=== PATIENT | female | born 1975 | race Caucasian/White ===

== ENCOUNTER 2016-12-15 10:59 | Emergency (ER) | payer MEDICAID ==
[2016-12-15 11:55] LABS: BASOPHILS 0.6 % (0.0-2.0); EOSINOPHILS 1.2 % (0-7); HEMATOCRIT 40.4 % (36.0-48.0); HEMOGLOBIN 13.1 g/dL (12-16); MCH 30.2 pg (26.0-34.0); MCHC 32.4 g/dL (31.0-37.0); MCV 93.1 fL (80.0-100.0); MEAN PLATELET VOLUME 11.4 fL (7.4-10.4); MONOCYTES 9.3 % (2-11); NEUTROPHILS 54.9 % (40-80); PLATELET COUNT 93 10x3/uL (130-400); RBC 4.34 10x6/uL (4.00-5.40); RDW 16.8 % (11.5-14.5); WBC 3.2 10x3/uL (4.8-10.8)
[2016-12-15 12:14] LABS: ALBUMIN 3.7 g/dL (3.4-5.0); ALKALINE PHOSPHATASE 75 U/L (46-116); ALT (SGPT) 37 U/L (10-68); BILIRUBIN - TOTAL 0.61 mg/dL (0.2-1.3); CALC OSMOLALITY 277 mosm/kg (275-300); CALCIUM 9.1 mg/dL (8.5-10.1); CARBON DIOXIDE 25.2 mmol/L (21.0-32.0); CHLORIDE - SERUM 103 mmol/L (98-107); CREATININE - SERUM 0.8 mg/dL (0.6-1.3); GLUCOSE 111 mg/dL (74-106); POTASSIUM - SERUM 3.3 mmol/L (3.5-5.1); PROTEIN - SERUM 7.4 g/dL (6.4-8.2); SODIUM 139 mmol/L (136-145); UREA NITROGEN 11 mg/dL (7-18); eGFR NON AFRICAN AMERICAN 85 mL/min (90-120)
[2016-12-15 12:15] LABS: PLATELET ESTIMATE DECREASED
== END 2016-12-15 13:14 | disposition home or self-care (01) ==
LOC: D.ER 10:59
PROVIDERS: Emergency Medicine
DX: I10 Essential (primary) hypertension (principal); F17.200 Nicotine dependence, unspecified, uncomplicated

== ENCOUNTER 2018-10-11 11:03 | Emergency (ER) | payer MEDICAID ==
[~2018-10-11] VITALS: Ht 175.3 cm; Wt 79.5 kg
[2018-10-11 11:31] VITALS: Ht 175.3 cm; Wt 79.5 kg
[2018-10-11] MEDS ORDERED: HYDROCHLOROTHIA25 MG PO (12:12)
[2018-10-11] MEDS ORDERED: NORVASC10 MG PO (12:12)
[2018-10-11 12:47] VITALS: BP 488/119
== END 2018-10-11 12:47 | disposition home or self-care (01) ==
LOC: D.ER 11:03
DX: I10 Essential (primary) hypertension (principal); R51 Headache; K21.9 Gastro-esophageal reflux disease without esophagitis; F17.200 Nicotine dependence, unspecified, uncomplicated

== ENCOUNTER 2019-04-02 18:13 | Emergency (ER) | payer SELFPAY ==
[~2019-04-02] VITALS: Ht 175.3 cm; Wt 70.5 kg
[~2019-04-02 18:13] MED LIST: HYDROCHLOROTHIA25 MG PO; NORVASC10 MG PO
[2019-04-02 18:27] VITALS: Ht 175.3 cm; Wt 70.5 kg
[2019-04-02 20:03] LABS: BASOPHILS 0.1 % (0-2); EOSINOPHILS 1.8 % (0-7); HEMATOCRIT 40.5 % (36.0-48.0); HEMOGLOBIN 13.2 g/dL (12-16); IMMATURE GRANULOCYTES 0.3 % (0-5); LYMPHOCYTES 35.5 % (15-50); MCH 28.4 pg (26.0-34.0); MCHC 32.6 g/dL (31.0-37.0); MCV 87.3 fL (80.0-100.0); MEAN PLATELET VOLUME 10.4 fL (7.4-10.4); MONOCYTES 5.8 % (2-11); NEUTROPHILS 56.5 % (40-80); RBC 4.64 10x6/uL (4.00-5.40); RDW 14.6 % (11.5-14.5); WBC 6.8 10x3/uL (4.8-10.8)
[2019-04-02 20:04] LABS: PLATELET COUNT 218 10x3/uL (130-400)
[2019-04-02 20:09] LABS: ALBUMIN 3.7 g/dL (3.4-5.0); ANION GAP 12.1 mmol/L (8-16); BILIRUBIN - TOTAL 0.15 mg/dL (0.2-1.3); CALCIUM 9.3 mg/dL (8.5-10.1); CARBON DIOXIDE 30.2 mmol/L (21.0-32.0); CREATININE - SERUM 0.9 mg/dL (0.6-1.3); MAGNESIUM - SERUM 1.9 mg/dL (1.8-2.4); POTASSIUM - SERUM 3.3 mmol/L (3.5-5.1); PROTEIN - SERUM 7.4 g/dL (6.4-8.2)
[2019-04-02 20:50] LABS: APPEARANCE CLEAR (CLEAR); BILIRUBIN NEGATIVE (NEGATIVE); COLOR STRAW (YELLOW); GLUCOSE NEGATIVE (NEGATIVE); KETONE NEGATIVE (NEGATIVE); NITRITE NEGATIVE (NEGATIVE); PROTEIN NEGATIVE (NEGATIVE); SPECIFIC GRAVITY 1.005 (1.005-1.020); UROBILINOGEN NORMAL (NORMAL)
[2019-04-02 21:47] LABS: HCG URINE NEGATIVE (NEGATIVE)
[2019-04-02 21:49] LABS: UDS - AMPHET NEGATIVE QUAL (NEGATIVE); UDS - BARB NEGATIVE QUAL (NEGATIVE); UDS - BENZO NEGATIVE QUAL (NEGATIVE); UDS - COCAINE NEGATIVE QUAL (NEGATIVE); UDS - OPIATE NEGATIVE QUAL (NEGATIVE); UDS - PCP NEGATIVE QUAL (NEGATIVE); UDS - THC NEGATIVE QUAL (NEGATIVE)
[2019-04-02 22:09] VITALS: BP 131/90
== END 2019-04-02 21:45 | disposition home or self-care (01) ==
LOC: D.ER 18:13
PROVIDERS: Family Medicine
DX: R55 Syncope and collapse (principal); E87.6 Hypokalemia; T50.905A Adverse effect of unspecified drugs, medicaments and biological substances, initial encounter; Y92.019 Unspecified place in single-family (private) house as the place of occurrence of the external cause

== ENCOUNTER 2019-06-01 13:27 | Emergency (ER) | payer MEDICAID ==
[~2019-06-01] VITALS: Ht 175.3 cm; Wt 73.6 kg
[2019-06-01 13:35] VITALS: Ht 175.3 cm; Wt 73.6 kg
[2019-06-01] MEDS ORDERED: ZYPREXA10 MG PO (13:37)
[2019-06-01] MEDS ORDERED: TYLENOL W/CODEI1 TAB PO (16:43)
[2019-06-01] MEDS ORDERED: VOLTAREN75 MG PO (16:43)
[2019-06-01 17:34] VITALS: BP 150/103
== END 2019-06-01 17:12 | disposition home or self-care (01) ==
LOC: D.ER 13:27
DX: S22.42XA Multiple fractures of ribs, left side, initial encounter for closed fracture (principal); Y04.2XXA Assault by strike against or bumped into by another person, initial encounter; Y93.89 Activity, other specified; Y92.89 Other specified places as the place of occurrence of the external cause; S27.0XXA Traumatic pneumothorax, initial encounter

== ENCOUNTER 2019-07-22 18:23 | Emergency (ER) | payer MEDICAID ==
[~2019-07-22] VITALS: Ht 175.3 cm; Wt 70.5 kg
[~2019-07-22 18:23] MED LIST changes: +TYLENOL W/CODEI1 TAB PO; +VOLTAREN75 MG PO; +ZYPREXA10 MG PO
[2019-07-22 18:35] VITALS: Ht 175.3 cm; Wt 70.5 kg
[2019-07-22 19:55] LABS: HEMATOCRIT 41.2 % (36.0-48.0); HEMOGLOBIN 14.1 g/dL (12-16); MCHC 34.2 g/dL (31.0-37.0); MCV 84.8 fL (80.0-100.0); MEAN PLATELET VOLUME 10.6 fL (7.4-10.4); PLATELET COUNT 95 10x3/uL (130-400); RBC 4.86 10x6/uL (4.00-5.40); RDW 14.6 % (11.5-14.5); WBC 5.8 10x3/uL (4.8-10.8)
[2019-07-22 20:16] LABS: ALKALINE PHOSPHATASE 115 U/L (46-116); ALT (SGPT) 192 U/L (10-68); BILIRUBIN - TOTAL 0.19 mg/dL (0.2-1.3); CALC OSMOLALITY 281 mosm/kg (275-300); CALCIUM 8.6 mg/dL (8.5-10.1); CHLORIDE - SERUM 105 mmol/L (98-107); CREATININE - SERUM 0.7 mg/dL (0.6-1.3); GLUCOSE 85 mg/dL (74-106); POTASSIUM - SERUM 3.6 mmol/L (3.5-5.1); PROTEIN - SERUM 6.6 g/dL (6.4-8.2); SODIUM 142 mmol/L (136-145); UREA NITROGEN 12 mg/dL (7-18); eGFR NON AFRICAN AMERICAN > 90 mL/min (90-120)
[2019-07-22 20:50] LABS: EOSINOPHILS 3 % (0-7); LYMPHOCYTES 52 % (15-50); MONOCYTES 2 % (2-11); NEUTROPHILS 39 % (40-80); PLATELET ESTIMATE DECREASED
[2019-07-22 21:38] LABS: APPEARANCE CLEAR (CLEAR); BILIRUBIN NEGATIVE (NEGATIVE); COLOR YELLOW (YELLOW); GLUCOSE NEGATIVE (NEGATIVE); KETONE NEGATIVE (NEGATIVE); NITRITE NEGATIVE (NEGATIVE); PROTEIN NEGATIVE (NEGATIVE); UROBILINOGEN NORMAL (NORMAL)
[2019-07-22] MEDS ORDERED: NORVASC10 MG PO (21:54)
[2019-07-22 22:37] VITALS: BP 159/108
[2019-07-24 10:11] LABS: HEPATITIS C ANTIBODY 0.1 S/CO RAT (0.0-0.9)
== END 2019-07-22 22:43 | disposition home or self-care (01) ==
LOC: D.ER 18:23
PROVIDERS: Family Medicine
DX: I10 Essential (primary) hypertension (principal); S09.90XA Unspecified injury of head, initial encounter; X58.XXXA Exposure to other specified factors, initial encounter; Y93.89 Activity, other specified; Y92.89 Other specified places as the place of occurrence of the external cause; F19.10 Other psychoactive substance abuse, uncomplicated

== ENCOUNTER 2019-07-24 08:35 | Emergency (ER) | payer MEDICAID ==
[~2019-07-24] VITALS: Ht 175.3 cm; Wt 70.5 kg
[2019-07-24 08:40] VITALS: Ht 175.3 cm; Wt 70.5 kg
[2019-07-24 09:31] LABS: BASOPHILS 0.6 % (0-2); EOSINOPHILS 1.5 % (0-7); HEMATOCRIT 45.5 % (36.0-48.0); HEMOGLOBIN 15.6 g/dL (12-16); IMMATURE GRANULOCYTES 0.2 % (0-5); LYMPHOCYTES 57.1 % (15-50); MCHC 34.3 g/dL (31.0-37.0); MCV 84.6 fL (80.0-100.0); MEAN PLATELET VOLUME 10.3 fL (7.4-10.4); MONOCYTES 4.3 % (2-11); NEUTROPHILS 36.3 % (40-80); RBC 5.38 10x6/uL (4.00-5.40); RDW 14.4 % (11.5-14.5)
[2019-07-24 09:38] LABS: PLATELET COUNT 120 10x3/uL (130-400); WBC 8.8 10x3/uL (4.8-10.8)
[2019-07-24 09:43] LABS: ALBUMIN 3.1 g/dL (3.4-5.0); ALKALINE PHOSPHATASE 140 U/L (46-116); ALT (SGPT) 615 U/L (10-68); BILIRUBIN - TOTAL 0.27 mg/dL (0.2-1.3); CALC OSMOLALITY 276 mosm/kg (275-300); CALCIUM 8.8 mg/dL (8.5-10.1); CARBON DIOXIDE 26.5 mmol/L (21.0-32.0); CHLORIDE - SERUM 101 mmol/L (98-107); CREATININE - SERUM 0.8 mg/dL (0.6-1.3); GLUCOSE 132 mg/dL (74-106); POTASSIUM - SERUM 3.5 mmol/L (3.5-5.1); SODIUM 138 mmol/L (136-145); UREA NITROGEN 10 mg/dL (7-18); eGFR NON AFRICAN AMERICAN 83 mL/min (90-120)
[2019-07-24 10:54] LABS: APTT 28.8 SECONDS (22.8-39.4); INR 1.05 (0.85-1.17); PROTIME 13.2 SECONDS (11.6-15.0)
[2019-07-24 12:28] LABS: AMYLASE - SERUM 43 U/L (25-115); LIPASE 222 U/L (73-393)
[2019-07-24 17:58] VITALS: BP 135/92
== END 2019-07-24 18:07 | disposition other institution (70) ==
LOC: D.ER 08:35
PROVIDERS: Family Medicine
DX: G44.309 Post-traumatic headache, unspecified, not intractable (principal); R94.5 Abnormal results of liver function studies

== ENCOUNTER 2019-12-09 10:15 | Inpatient (IN) | payer MEDICAID ==
[~2019-12-09] VITALS: Ht 175.3 cm; Wt 70.3 kg
--- NOTE | ~2019-12-09 | HEMODYNAMI ---
PATIENT:QIANA DOUGHERTY MEDICAL RECORD: [id number] : 79 LOCATION:[facility] D.2113 ADMISSION DATE: 12/09/19 Generatedon:12/14/201910:43 Patient name: QIANA DOUGHERTY Patient #: [id number] SSN: : 1975 Date of study: 12/14/2019 Page: Of Hemodynamic Procedure Report Patient Data Patient Demographics Procedure consent was obtained First Name: QIANA Gender: Female Last Name: LADONNA : 1975 Middle Initial: B Age: 44 year(s) Patient #: [id number] Race: Unknown Additional ID: [id number] Contact details Address: [address] [place] [address] State: [place] City: [place] Zip code: [address] Past Medical History Allergies Allergen Reaction Date Comments Reported Other allergy 12/14/2019 pcn/tomato/shelfish derived iodione/see LIST Admission Admission Data Admission Date: 12/09/2019 Admission Time: 14:01 Room #: D.2113 Height (in.): 69 BSA: 1.85 (m2) Height (cm.): 175.26 BMI: 22.88 (kg/m2) Weight (lbs.): 154.92 Weight (kg.): 70.27 Lab Results Lab Result Date: 12/14/2019 Lab Result Time: 0:00 Biochemistry Name Units Result Min Max BUN mg/dl 16 --(---*)-- 7 18 Creatinine mg/dl 0.8 --(-*--)-- 0.6 1.3 eGFR ml/min 82.58626 -*(----)-- 90 120 NONAFRICAN CBC Name Units Result Min Max Hematocrit % 42 --(*---)-- 42 54 Hemoglobin g/dl 13 -*(----)-- 13.5 17.5 Procedure Procedure Types Cath Procedure Diagnostic Procedure Right Heart RHC and LHC w/Coronaries Sedation Charges Moderate Sedation up to 15 minutes Procedure Description Procedure Date Procedure Date: 12/14/2019 Procedure Start Time: 10:17 Procedure End Time: 10:42 Procedure Staff Name Function Paddy Naik MD Performing Physician Spenser Anderson RT Monitor Mariza Alonzo RN Nurse Lizzy Odonnell RT Scrub Indication Pulmonary hypertension Procedure Data Cath Procedure Fluoroscopy Diagnostic fluoroscopy Total fluoroscopy Time: 2.9 time: 2.9 min min Diagnostic fluoroscopy Total fluoroscopy dose: dose: 87.11 mGy 87.11 mGy Contrast Material Contrast Material Type Amount (ml) Isovue 300 37 Entry Location Entry Primary Successful Side Size Upsize Upsize Entry Closure Paez ccessful Closure Location (Fr) 1 (Fr) 2 (Fr) Remarks Device Remarks Femoral Right 5 Fr Exoseal artery Femoral Right 7 Fr Manual vein Short Compression Estimated blood loss: 10 ml Diagnostic catheters Device Type Used For End Catheter Placement SWAN 7Fr Thermodilution Procedure cather (131F7P) MULTIPACK Pigtail 5 Fr Procedure catheter MULTIPACK JL 4.0 5Fr Procedure catheter MULTIPACK 3DRC 5Fr Procedure catheter Procedure Complications No complications Procedure Medications Medication Administration Route Dosage 0.9% NaCl I.V. 100 ml/hr Oxygen etCO2 Nasal cannula 2 l/min Lidocaine 2% added to field 20 Heparin Flush Bag added to field 2 bags (1000units/500ml NS) Versed I.V. 2 mg Fentanyl I.V. 50 mcg Versed I.V. 2 mg Fentanyl I.V. 50 mcg Versed I.V. 2 mg Fentanyl I.V. 50 mcg Fentanyl I.V. 50 mcg Adenosine IV 3mg/ml I.V. 50 mcg/kg/min Adenosine IV 3mg/ml I.V. 100 mcg/kg/min Adenosine IV 3mg/ml I.V. 200 mcg/kg/min Adenosine IV 3mg/ml I.V. 0 mcg/kg/min Hemodynamics Rest BSA: 1.85 (m2) HGB: 13 (g/dl) O2 Consumption: Estimated: 191.47 (ml/min) O2 Cons umption indexed: Estimated:103.5 (ml/min/m) Heart Rate: 77 (bpm) Pressure Samples Time Site Value (mmHg) Purpose Heart Use Rate(bpm) 10:21 RA 7/6(4) Snapshot 78 10:24 PCW 7/8(6) Snapshot 80 10:24 PA 73/27(42) Snapshot 77 10:26 LV 109/7,8 Snapshot 77 10:26 AO 116/86(101) Pullback 78 10:26 LV 111/8,6 Pullback 78 10:27 PA 68/29(42) Snapshot 77 10:29 PA 67/26(40) Snapshot 82 10:29 PA 67/25(39) Snapshot 78 Gradients Valve Time Site 1 Site 2 Mean SEP/DFP Peak To Heart Use (mmHg) (sec/min) Peak Rate (mmHg) (bpm) Aortic 10:26 LV AO 0 78 111/8,6 116/86(101) Calculations Valve P-P Mean Valve Index Valve Source Name Gradient Area Flow (cm2) Aortic 0 0 Snapshots Pre Cath Intra NCS Post Cath Vital Signs Time Heart Resp SPO2 etCO2 NIBP (mmHg) Rhythm Pain Sedation Rate (ipm) (%) (mmHg) Status Level (bpm) 9:48:20 79 19 96 27 156/110(131) NSR 0 (11) 10(A) , No pain 9:52:38 83 15 98 27.8 151/107(124) NSR 0 (11) 10(A) , No pain 9:56:53 78 17 95 30.8 153/102(124) NSR 0 (11) 10(A) , No pain 10:01:07 79 17 98 15 146/108(128) NSR 0 (11) 10(A) , No pain 10:05:18 77 15 96 11.2 142/102(117) NSR 0 (11) 10(A) , No pain 10:09:26 76 12 96 39.8 129/92(102) NSR 0 (11) 10(A) , No pain 10:13:34 77 12 98 29.3 131/81(104) NSR 0 (11) 10(A) , No pain 10:17:46 76 20 99 29.2 123/82(101) NSR 0 (11) 10(A) , No pain 10:21:56 79 19 97 32.3 129/69(95) NSR 0 (11) 10(A) , No pain 10:26:02 70 13 96 35.3 125/88(106) NSR 0 (11) 10(A) , No pain 10:30:42 83 15 96 28.5 136/84(110) NSR 0 (11) 10(A) , No pain 10:34:50 84 15 97 30 129/88(110) NSR 0 (11) 10(A) , No pain 10:38:56 91 31.5 132/86(110) NSR 0 (11) 10(A) , No pain Medications Time Medication Route Dose Verified Delivered Reason Notes Effectiveness by by 9:52:48 0.9% NaCl I.V. 100 ml/hr Paddy Mariza used for Gumaro Alonzo wood hacker 9:52:55 Oxygen etCO2 2 l/min Paddy Mariza used for Nasal Gumaro Alonzo procedure cannula RN 9:53:00 Lidocaine 2% added 20ml vial Paddy Thomason for local to Gumaro Naik MD anesthetic field 9:53:05 Heparin Flush added 2 bags Paddy Urbinarey used for Bag to Gumaro Naik MD procedure (1000units/500ml field NS) 10:09:01 Versed I.V. 2 mg Paddy Mariza for Gumaro Alonzo sedation RN 10:09:09 Fentanyl I.V. 50 mcg Paddy Mariza for Gumaro Alonzo sedation RN 10:14:21 Versed I.V. 2 mg Paddy Mariza for Gumaro Alonzo sedation RN 10:14:32 Fentanyl I.V. 50 mcg Paddy Mariza for Gumaro Alonzo sedation RN 10:20:18 Versed I.V. 2 mg Paddy Mariza for Gumaro Alonzo sedation RN 10:20:26 Fentanyl I.V. 50 mcg Paddy Mariza for Gumaro Alonzo sedation RN 10:24:57 Fentanyl I.V. 50 mcg Paddy Mariza for Gumaro Alonzo sedation RN 10:25:10 Adenosine IV I.V. 50 Paddy Mariza used for 3mg/ml mcg/kg/min Gumaro Alonzo wood hacker 10:28:11 Adenosine IV I.V. 100 Paddy Mariza used for 3mg/ml mcg/kg/min Gumaro Alonzo wood hacker 10:30:11 Adenosine IV I.V. 200 Paddy Mariza used for 3mg/ml mcg/kg/min Gumaro Alonzo wood hacker 10:32:58 Adenosine IV I.V. 0 Paddy Mariza used for 3mg/ml mcg/kg/min Gumaro Alonzo wood hacker Procedure Log Time Note 9:17:36 Indication : Pulmonary hypertension 9:17:59 Procedure Status Urgent Heart Cath (IP). 9:18:03 Time tracking: Regular hours (M-F 7:00 - 5:00) 9:23:34 Risk of Mortality: 0.1 9:23:40 Risk of blood transfusion: 0.5 9:23:46 Risk of BRIA: 1.4 9:24:35 Lab Result : eGFR NONAFRICAN 82.85287 ml/min 9:24:35 Lab Result : Creatinine 0.8 mg/dl 9::35 Lab Result : BUN 16 mg/dl 9:24:35 Lab Result : Hematocrit 42 % 9::35 Lab Result : Hemoglobin 13 g/dl 9:24:43 Lab results completed and on chart. 9:26:17 Patient allergic to Other allergypcn/tomato/shelfish derived iodione/see LIST 9:30:22 Mariza Alonzo RN sent for patient. Start room use. 9:43:30 Plan of Care:Hemodynamics will remain stable., Cardiac rhythm will remain stable., Comfort level will be maintained., Respiratory function will remain adequate., Patient/ family verbilizes understanding of procedure., Procedure tolerated without complication., Recovers from procedure without complications.. 9:43:56 Patient received from Med II to CCL 3 Alert and oriented. Tansferred to table in Supine position. 9:44:23 Signed procedure consent form obtained from patient. 9:44:24 Warm blankets applied, and nilton hugger turned on for patient comfort. 9:44:25 Correct patient and procedure confirmed by team. 9:44:26 ECG and BP/O2 sat monitors applied to patient. 9:47:07 Vital chart was started 9:52:48 0.9% NaCl 100 ml/hr I.V. was administered by Mariza Alonzo RN; used for procedure; Verbal order read back and verified. 9:52:55 Oxygen 2 l/min etCO2 Nasal cannula was administered by Mariza Alonzo RN; used for procedure; Verbal order read back and verified. 9:53:00 Lidocaine 2% 20ml vial added to field was administered by Paddy Naik MD; for local anesthetic; Verbal order read back and verified. 9:53:05 Heparin Flush Bag (1000units/500ml NS) 2 bags added to field was administered by Paddy Naik MD; used for procedure; Verbal order read back and verified. 9:57:07 Baseline sample Acquired. 9:57:14 Rhythm: sinus rhythm 9:57:15 Full Disclosure recording started 9:57:24 H&P Date Dictated: 12/13/2019 Within 30 days and on chart., H&P Addendum completed by physician on day of procedure. (MUST COMPLETE FOR ALL OUTPATIENTS). 9:57:25 Pre-procedure instructions explained to patient. 9:57:25 Pre-op teaching completed and patient verbalized understanding. 9:57:26 Family in patients room. 9:57:28 Patient NPO since Midnight. 9:57:31 Is the patient allergic to Iodine/contrast media? Yes. 9:57:32 Was the patient premedicated? Yes 9:57:34 Is patient on blood thinner?No 9:57:36 ACC The patient was administered the following blood thiners within the last 24 hours: None 9:57:37 Patient diabetic? No. 9:58:10 Patient not . Patient has had tubal. 9:58:12 Previous problem with sedation/anesthesia? No ? 9:58:13 Snore? Yes 9:58:14 Sleep apnea? Yes 9:58:15 Deviated septum? No 9:58:16 Opens mouth fully? Yes 9:58:17 Sticks out tongue? Yes 9:58:26 Airway obstruction? No ? 9:58:28 Dentures? No ? 9:58:32 Pre procedure: right dorsailis pedis pulse 1+ Palpable, but thready & weak; easily obliterated 9:58:36 Patient pain scale 0/10 ?. 9:58:40 IV patent on arrival in right forearm with 0.9% NaCl at KVO. 9:58:48 Stress Test: no; N/A ? 10:04:55 Patient Height : 69 inches 10:04:59 Patient Weight : 154.92 lbs 10:08:20 Right groin area was prepped with chlora-prep and draped in sterile fashion 10:08:20 Alarms reviewed by R. N. 10:08:21 Sharps counted by scrub and verified by R.N. 10:08:22 Physician arrived 10:08:22 --------ALL STOP TIME OUT------ 10:08:23 Final Timeout: patient, procedure, and site verified with staff and physician. All members of the team are in agreement. 10:08:25 Right groin site verified by team. 10:08:30 Fire Safety Assessment: A--An alcohol-based skin anteseptic being used preoperatively., C--Open oxygen or nitrous oxide is being used., D--An ESU, laser, or fiber-optic light is being used. 10:08:33 Physical assessment completed. ASA score P 2 - A patient with mild systemic disease as per Paddy Naik MD. 10:08:36 2) 60-89 Mildly reduced kidney function, and other findings (as for stage 1) point to kidney disease. 10:08:39 Maximum allowable contrast dose (3.7 X eGFR X 0.75)230 ml. 10:08:42 Sedation plan: IV Moderate Sedation Medication:Versed, Fentanyl 10:09:01 Versed 2 mg I.V. was administered by Mariza Alonzo RN; for sedation; Verbal order read back and verified. 10:09:09 Fentanyl 50 mcg I.V. was administered by Mariza Alonzo RN; for sedation; Verbal order read back and verified. 10:14:21 Versed 2 mg I.V. was administered by Mariza Alonzo RN; for sedation; Verbal order read back and verified. 10:14:32 Fentanyl 50 mcg I.V. was administered by Mariza Alonzo RN; for sedation; Verbal order read back and verified. 10:16:11 Use device set Femoral Dx 10:16:13 ACIST Hand Control (84527) opened to sterile field. 10:16:14 ACIST Manifold (28756) opened to sterile field. 10:16:15 ACIST Syringe (39713) opened to sterile field. 10:16:15 Bag Decanter (2002S) opened to sterile field. 10:16:16 Medline Cath Pack ([id number]) opened to sterile field. 10:16:17 Tegaderm 4 x 4 (1626W) opened to sterile field. 10:16:51 Use device set Right Heart Kit 10:16:55 SHEATH 7FR Enoree (ZBG798) opened to sterile field. 10:17:00 DIAGNOSTIC Multipack 5Fr catheter set ([id number]) opened to sterile field. 10:17:02 SHEATH 5FR [place]oree (LOS461) opened to sterile field. 10:17:03 EMERALD Guide Wire (734-751) opened to sterile field. 10:17:29 Procedure started. 10:17:44 Local anesthetic to right femoral artery with Lidocaine 2% by Paddy Naik MD.INITIAL ACCESS ONLY 10:19:01 A 5 Fr sheath was inserted into the Right Femoral artery 10:19:14 A 7 Fr Short sheath was inserted into the Right Femoral vein 10:20:18 Versed 2 mg I.V. was administered by Mariza Alonzo RN; for sedation; Verbal order read back and verified. 10:20:26 Fentanyl 50 mcg I.V. was administered by Mariza Alonzo RN; for sedation; Verbal order read back and verified. 10:20:38 A SWAN 7Fr Thermodilution cather (131F7P) was advanced over the wire and used for Procedure. 10:20:50 Zero performed for pressure channel P1 10:23:40 DIAGNOSTIC WIRE .025 150cm J (201540) opened to sterile field. 10:24:32 Wire used to advance swan. 10:24:57 Fentanyl 50 mcg I.V. was administered by Mariza Alonzo RN; for sedation; Verbal order read back and verified. 10:25:03 Right Heart pressures measured. 10:25:10 Adenosine IV 3mg/ml 50 mcg/kg/min I.V. was administered by Mariza Alonzo RN; used for procedure; Verbal order read back and verified. 10:26:28 A MULTIPACK Pigtail 5 Fr catheter was advanced over the wire and used for Procedure. 10:26:46 LV angiography performed. 10:26:48 LV gram done using DORMAN 10::53 EF : 60 % 10::57 Injector settings: Ml/sec: 5, Volume: 15, 10:27:19 Catheter removed. 10:27:23 A MULTIPACK JL 4.0 5Fr catheter was advanced over the wire and used for Procedure. 10:27:35 LCA angiography performed. 10:27:37 Catheter removed. 10::55 Timer 1 started at 10:25 AM, stopped at 10:27 AM, duration 00:02:49 sec. 10:28:11 Adenosine IV 3mg/ml 100 mcg/kg/min I.V. was administered by Mariza Alonzo RN; used for procedure; Verbal order read back and verified. 10:29:06 A MULTIPACK 3DRC 5Fr catheter was advanced over the wire and used for Procedure. 10:29:13 RCA angiography performed. 10:29:15 Catheter removed. 10:29:18 EXOSEAL 5Fr (EX500) opened to sterile field. :30:06 Timer started at 10:27 AM, stopped at 10:29 AM, duration 00:02:49 sec. 10:30:11 Adenosine IV 3mg/ml 200 mcg/kg/min I.V. was administered by Mariaz Alonzo RN; used for procedure; Verbal order read back and verified. 10:32:58 Adenosine IV 3mg/ml 0 mcg/kg/min I.V. was administered by Mariza Alonzo RN; used for procedure; Verbal order read back and verified. 10:34:20 Sheath removed intact; hemostasis achieved with Exoseal to the Right Femoral artery. 10:34:42 Procedure ended.(Physican Out) 10:38:24 Fluoroscopy time 02.90 minutes. 10:38:45 Fluoroscopy dose: 87.11 mGy 10:38:45 Flurop Dose total: 87.11 10:38:50 Dose Area Product 803.14 mGy/cm. 10:39:15 Contrast amount:Isovue 300 37ml. 10:39:18 Maximum allowable dose exceeded? No. 10:39:28 Sheath removed intact; hemostasis achieved with Manual Compression to the Right Femoral vein. 10:39:31 Sharps counted by scrub and verified by R.N. 10:39:31 Insertion/operative site no bleeding no hematoma. 10:39:35 Post-op/insertion site Right Femoral artery dressed using a 4 x 4 and Tegaderm. 10:39:37 Post Procedure Pulses reassessed and unchanged 10:39:39 Post-procedure physical assessment completed. ASA score P 2 - A patient with mild systemic disease as per Paddy Naik MD. 10:39:42 Post procedure rhythm: unchanged. 10:39:46 Estimated blood loss: 10 ml 10:39:47 Post procedure instruction explained to patient.Patient verbalizes understanding. 10:39:47 Patient needs reinforcement of post procedure teaching. 10:40:01 Procedure and supply charges have been captured, reviewed, submitted and are correct. 10:40:04 Procedure Complication : No complications 10:41:16 Procedure type changed to Cath procedure, Diagnostic procedure, Right Heart, RHC and LHC w/Coronaries, Sedation Charges, Moderate Sedation up to 15 minutes 10:41:52 Vital chart was stopped 10:41:54 LHC Findings: mild to moderate CAD (<70%) 10:42:02 RHC Findings: no evidence of underlying pulmonary disease 10:42:03 Operative report dictated upon procedure completion. 10:42:04 See physician's report for complete and final results. 10:42:06 Report given to PCU. 10:42:11 Patient transfered to PCU with Bed. 10:42:13 Procedure ended. 10:42:13 Full Disclosure recording stopped 10:42:21 End room use (Document Last) 10:42:31 End room use (Document Last) 10:43:29 End room use (Document Last) Device Usage Item Name Manufacture Quantity Catalog Hospital Part Current Minima l Lot# / Number Charge Number Stock Stock Serial# Code ACIST Hand Acist 1 53705 999174 139612 892454 5 Control Medical (18354) Systems Inc ACIST Manifold Acist 1 75340 732742 051661 080995 5 (47827) Medical Systems Inc ACIST Syringe Acist 1 02071 285348 125213 330740 20 (81239) Medical Systems Inc Bag Decanter Microtek 1 2002S 271059 30017 799517 5 (2002S) Medical Inc. Medline Cath Medline 1 [id number] 583446 25462 503376 5 Pack ([id number]) Tegaderm 4 x 4 3M 1 1626W 008339 883837 473233 5 (1626W) SHEATH 7FR Terumo 1 WNU081 911729 929227 982634 5 Enoree (QIO226) DIAGNOSTIC Cardinal 1 BH8712 284169 18958 605467 30 Multipack 5Fr Health catheter set (OT1209) SHEATH 5FR Terumo 1 HGV267 010921 936867 307058 5 Enoree (NVG670) EMERALD Guide Cardinal 1 502-455 749283 947893 037132 5 Wire (502-455) Health SWAN 7Fr Desir 1 131F7P 961861 14245 073179 3 Thermodilution Lifesciences cather (131F7P) DIAGNOSTIC St Kalia 1 559096 052105 577202 885033 2 WIRE .025 150cm J (016571) MULTIPACK Cardinal 1 031534 5 Pigtail 5 Fr Health catheter MULTIPACK JL Cardinal 1 162150 5 4.0 5Fr Health catheter MULTIPACK 3DRC Cardinal 1 496758 5 5Fr catheter Health EXOSEAL 5Fr Cardinal 1 EX500 508404 808162 474164 10 (EX500) Health Signature Audit [place] Stage Time Signature Unsigned Intra-Procedure 12/14/2019 Spenser Anderson 10:42:31 AM RT(R) Intra-Procedure 12/14/2019 Mariza Alonzo 10:43:29 AM RN Intra-Procedure 12/14/2019 Paddy Naik 10:43:47 AM [facility] [address] [place] [address]
[2019-12-09] MEDS ORDERED: TOPROL XL25 MG PO (10:25)
[2019-12-09] MEDS ORDERED: MACROBID100 MG PO (10:25)
--- NOTE | 2019-12-09 10:32 | NUR ---
HS NOTIFIED OF NEED FOR MH SCREENING
[2019-12-09 11:09] LABS: APPEARANCE CLEAR (CLEAR); BILIRUBIN NEGATIVE (NEGATIVE); COLOR YELLOW (YELLOW); GLUCOSE NEGATIVE (NEGATIVE); KETONE NEGATIVE (NEGATIVE); NITRITE NEGATIVE (NEGATIVE); PROTEIN TRACE mg/dL (NEGATIVE); UROBILINOGEN NORMAL (NORMAL)
[2019-12-09 11:10] LABS: AMORPHOUS SEDIMENT <1+ /lpf (NONE SEEN); BACTERIA MODERATE /hpf (NEGATIVE); EPITHELIAL CELLS 0-5 /hpf (0-5); MUCUS <1+ /lpf (NONE SEEN); WHITE CELLS - URINE 0-5 /hpf (NEGATIVE)
[2019-12-09 11:18] LABS: HCG URINE NEGATIVE (NEGATIVE)
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
[2019-12-09 12:13] LABS: INR 1.03 (0.85-1.17); PROTIME 13.4 SECONDS (11.6-15.0)
[2019-12-09 12:23] LABS: BASOPHILS 0.4 % (0-2); EOSINOPHILS 0.8 % (0-7); HEMATOCRIT 38.6 % (36.0-48.0); IMMATURE GRANULOCYTES 0.5 % (0-5); LYMPHOCYTES 37.1 % (15-50); MCH 24.4 pg (26.0-34.0); MCHC 31.1 g/dL (31.0-37.0); MCV 78.6 fL (80.0-100.0); MEAN PLATELET VOLUME 9.7 fL (7.4-10.4); MONOCYTES 4.4 % (2-11); NEUTROPHILS 56.8 % (40-80); RBC 4.91 10x6/uL (4.00-5.40); RDW 16.5 % (11.5-14.5); WBC 10.1 10x3/uL (4.8-10.8)
[2019-12-09 12:35] LABS: PLATELET COUNT 198 10x3/uL (130-400)
[2019-12-09 13:12] LABS: CALC OSMOLALITY 277 mosm/kg (275-300); CALCIUM 8.4 mg/dL (8.5-10.1); CARBON DIOXIDE 25.1 mmol/L (21.0-32.0); CHLORIDE - SERUM 104 mmol/L (98-107); CREATININE - SERUM 0.9 mg/dL (0.6-1.3); GLUCOSE 96 mg/dL (74-106); POTASSIUM - SERUM 3.5 mmol/L (3.5-5.1); SODIUM 140 mmol/L (136-145); UREA NITROGEN 11 mg/dL (7-18); eGFR NON AFRICAN AMERICAN 73 mL/min (90-120)
[2019-12-09 13:27] LABS: ALBUMIN 3.1 g/dL (3.4-5.0); ALKALINE PHOSPHATASE 101 U/L (46-116); ALT (SGPT) 60 U/L (10-68); AMYLASE - SERUM 31 U/L (25-115); BILIRUBIN - DIRECT 0.09 mg/dL (0.00-0.30); BILIRUBIN - INDIRECT 0.34 mg/dL (0.00-1.00); BILIRUBIN - TOTAL 0.43 mg/dL (0.2-1.3); C-REACTIVE PROTEIN < 0.2 mg/dL (0.0-0.9); CKMB 2.1 U/L (0.0-3.6); CREATINE KINASE 86 UL (21-215); LIPASE 176 U/L (73-393); MAGNESIUM - SERUM 1.8 mg/dL (1.8-2.4); PROTEIN - SERUM 6.7 g/dL (6.4-8.2); TROPONIN-I 0.022 ng/mL (0.000-0.060)
[2019-12-09 16:20] LABS: ALBUMIN 2.7 g/dL (3.4-5.0); BILIRUBIN - DIRECT 0.1 mg/dL (0.00-0.30); BILIRUBIN - INDIRECT 0.32 mg/dL (0.00-1.00); BILIRUBIN - TOTAL 0.42 mg/dL (0.2-1.3); PROTEIN - SERUM 6.3 g/dL (6.4-8.2)
[2019-12-09 16:50] LABS: MAGNESIUM - SERUM 1.8 mg/dL (1.8-2.4); THYROID STIMULATING HORMONE 0.64 uIU/mL (0.36-3.74)
[2019-12-09 19:00] VITALS: BP 182/124
[2019-12-09 20:00] VITALS: BP 174/131
[2019-12-09 20:12] VITALS: BP 174/131; BMI 24.4
[2019-12-09 21:00] VITALS: BP 168/124
[2019-12-09 22:00] VITALS: BP 157/115
[2019-12-09 23:00] VITALS: BP 174/110
--- NOTE | 2019-12-09 23:00 | NUR ---
REASSESSMENT COMPLETE, SEE FLOWSHEET FOR ALL FINDINGS. UP TO BEDSIDE COMMODE WITH NO DIFFICULTY. ANITA CARE PROVIDED, PT MENSTRUATING. PARTIAL LINEN CHANGE PROVIDED. PT REPOSITIONS SELF INDEPENDENTLY. CALL LIGHT WITHIN PT REACH. CPOC.
[2019-12-10] VITALS (24 sets, daily range): BP systolic 127–159; BP diastolic 92–122
--- NOTE | 2019-12-10 | NUR ---
JANE WILLIS AT BEDSIDE, UPDATE PROVIDED, PT REMAINS HYPERTENSIVE, NEW ORDERS REC'D, SEE MAR.
--- NOTE | 2019-12-10 01:00 | NUR ---
PT RESTING QUIETLY WITH NO S/S OF ACUTE DISTRESS. REPOSITIONS SELF INDEPENDENTLY. VSS, CPOC.
--- NOTE | 2019-12-10 03:00 | NUR ---
REASSESSMENT COMPLETE, SEE FLOWSHEET FOR ALL FINDINGS. PT REPOSITIONS SELF INDEPENDENTLY. NO C/O PAIN AT THIS TIME. CALL LIGHT WITHIN PT REACH. CPOC.
[2019-12-10 04:41] LABS: BASOPHILS 0.1 % (0-2); EOSINOPHILS 0 % (0-7); HEMATOCRIT 37.6 % (36.0-48.0); HEMOGLOBIN 11.8 g/dL (12-16); IMMATURE GRANULOCYTES 0.1 % (0-5); MCH 24.6 pg (26.0-34.0); MCHC 31.4 g/dL (31.0-37.0); MCV 78.3 fL (80.0-100.0); MONOCYTES 3.3 % (2-11); NEUTROPHILS 77.5 % (40-80); PLATELET COUNT 237 10x3/uL (130-400); RDW 16.6 % (11.5-14.5)
[2019-12-10 04:51] LABS: ALBUMIN 2.7 g/dL (3.4-5.0); ALKALINE PHOSPHATASE 86 U/L (46-116); ALT (SGPT) 49 U/L (10-68); CALC OSMOLALITY 279 mosm/kg (275-300); CALCIUM 8.2 mg/dL (8.5-10.1); CARBON DIOXIDE 25.6 mmol/L (21.0-32.0); CHLORIDE - SERUM 104 mmol/L (98-107); CREATININE - SERUM 0.8 mg/dL (0.6-1.3); GLUCOSE 116 mg/dL (74-106); MAGNESIUM - SERUM 1.5 mg/dL (1.8-2.4); POTASSIUM - SERUM 3.1 mmol/L (3.5-5.1); PROTEIN - SERUM 6.5 g/dL (6.4-8.2); SODIUM 140 mmol/L (136-145); UREA NITROGEN 12 mg/dL (7-18); eGFR NON AFRICAN AMERICAN 83 mL/min (90-120)
[2019-12-10 04:55] LABS: WBC 6.9 10x3/uL (4.8-10.8)
--- NOTE | 2019-12-10 20:30 | NUR ---
PT REQUESTING SOMETHING FOR SLEEP OR ANXIETY. SHE APPEARS RESTLESS. VSS. SEE MAR FOR 1X ORDER OF BENADRYL 50MG IV. INSTRUCTED HER TO CALL FOR HELP TO GET OUT OF BED. VERBALIZED UNDERSTANDING. BED LOW AND CALL LIGHT WITHIN REACH.
--- NOTE | 2019-12-10 23:37 | NUR ---
LABETALOL GIVEN ORDERED FOR DBP>105. COMPUTER SHUT DOWN WHILE ADMINISTERING MED AND WHEN I GO BACK IN TO RESUBMIT IT WILL NOT LET ME CHART ON LABETALOL.
[2019-12-11] VITALS (11 sets, daily range): BP systolic 125–170; BP diastolic 93–122
[2019-12-11 03:38] LABS: BASOPHILS 0.1 % (0-2); EOSINOPHILS 0.4 % (0-7); HEMATOCRIT 35.5 % (36.0-48.0); HEMOGLOBIN 10.9 g/dL (12-16); IMMATURE GRANULOCYTES 0.3 % (0-5); LYMPHOCYTES 32.5 % (15-50); MCH 24.3 pg (26.0-34.0); MCHC 30.7 g/dL (31.0-37.0); MCV 79.2 fL (80.0-100.0); MEAN PLATELET VOLUME 9.8 fL (7.4-10.4); MONOCYTES 6.2 % (2-11); NEUTROPHILS 60.5 % (40-80); PLATELET COUNT 239 10x3/uL (130-400); RBC 4.48 10x6/uL (4.00-5.40); RDW 16.7 % (11.5-14.5)
[2019-12-11 03:45] LABS: WBC 12.2 10x3/uL (4.8-10.8)
[2019-12-11 03:56] LABS: ALBUMIN 2.4 g/dL (3.4-5.0); ANION GAP 11.9 mmol/L (8-16); BILIRUBIN - TOTAL 0.32 mg/dL (0.2-1.3); CALCIUM 8.1 mg/dL (8.5-10.1); CARBON DIOXIDE 26.6 mmol/L (21.0-32.0); CREATININE - SERUM 0.9 mg/dL (0.6-1.3); POTASSIUM - SERUM 3.5 mmol/L (3.5-5.1)
[2019-12-11 03:59] LABS: MAGNESIUM - SERUM 1.9 mg/dL (1.8-2.4)
[2019-12-11 06:09] LABS: ANA REFLEX - DIRECT Negative (Negative)
[2019-12-11 10:10] LABS: HEPATITIS C ANTIBODY 0.1 S/CO RAT (0.0-0.9)
--- NOTE | 2019-12-11 19:00 | NUR ---
REPORT RECEIVED. PT RESTING IN BED RR EVEN AND UNLABORED. NO S/SX OF DISTRESS NOTED AT THIS TIME. PT DENIES NEEDS. SRX2, CALL LIGHT IN REACH. WILL CTM.
--- NOTE | 2019-12-11 20:43 | MORECARE ---
CASE MANAGEMENT DISCHARGE SUMMARY PATIENT: QIANA DOUGHERTY UNIT: [id number] ADM DATE: 12/09/19 AGE: 44 : [birth year] SEX: F ROOM/BED: D[facility] AUTHOR: PEBBLES JOHNSON PHYSICIAN: REFERRING PHYSICIAN: TARUN SWEET MD DATE OF SERVICE: 12/11/19 Discharge Plan Patient Name: QIANA DOUGHERTY [facility] : 1975 Planned Disposition: Anticipated Discharge Date: Discharge Date: Expected LOS: Initial Reviewer: [email or web address] Initial Review Date: 12/09/2019 Generated: 12/11/19 9:43 pm DCPIA - Discharge Planning Initial Assessment Updated by [email or web address]: Teetee Cowan on 12/11/19 8:41 pm * Is the patient Alert and Oriented? Yes * How many steps to enter\exit or inside your home? * PCP NO PCP - POSSIBLY GRIFF[place]? * Pharmacy [facility] * Preadmission Environment Home with Family * ADLs Independent * Equipment None * List name and contact numbers for known caregivers / representatives who currently or will assist patient after discharge: SAMAN TANG - MOTHER - [phone] * Verbal permission to speak to the caregivers and representatives has been obtained from the patient. Yes * Community resources currently utilized None * Additional services required to return to the preadmission environment? No * Can the patient safely return to the preadmission environment? Yes * Has this patient been hospitalized within the prior 30 days at any hospital? No Patient Name: QIANA DOUGHERTY Page 41951 at 2043 All edits/amendments must be made on the electronic document DICTATION DATE: 12/11/192042 MANAGER STRATEGIC SOURCING: EAGLE 12/11/192042 RPT#: [id number] DC DATE: STATUS: ADM IN [facility] [address] [place] [address] END OF REPORT
--- NOTE | 2019-12-11 20:50 | MORECARE ---
CASE MANAGEMENT DISCHARGE SUMMARY PATIENT: QIANA DOUGHERTY UNIT: [id number] ADM DATE: 12/09/19 AGE: 44 : [birth year] SEX: F ROOM/BED: D.1153 AUTHOR: ALEX,DOC PHYSICIAN: REFERRING PHYSICIAN: TARUN SWEET MD DATE OF SERVICE: 12/11/19 Discharge Plan Patient Name: QIANA DOUGHERTY Facility: [facility]:[place] : 1975 Planned Disposition: Anticipated Discharge Date: Discharge Date: Expected LOS: Initial Reviewer: [email or web address] Initial Review Date: 12/09/2019 Generated: 12/11/19 9:49 pm Comments DCP- Discharge Planning Updated by [email or web address]: Teetee Cowan on 12/11/19 7:[address] LATE ENTRY 12/10/19 Patient Name: QIANA DOUGHERTY Admission Status: ER Accout number: [id number] Admission Date: 12-09-2019 : 1975 Admission Diagnosis: Attending: KEE, Current LOS: 1 Anticipated DC Date: Planned Disposition: Primary [place]: [place] [employer] [place] Discharge Planning Comments: CM met with patient to complete initial dc planning assessment. CM educated patient on the CM role and verbal consent given by patient to complete assessment. Patient lives at home with her friend where she is independent with her care. At discharge patient plans to return home and feels this is a safe discharge. CM discussed availability of home health, rehab services, and medical equipment. Patient requested information on drug rehab facilities. CM gave patient a list of rehab facilities locally. CM will continue to follow and will assist as needed with dc plans/needs. Clinical Psychology Professor: Teetee Cowan DCPIA - Discharge Planning Initial Assessment Updated by [email or web address]: Teetee Cowan on 12/11/19 8:41 pm * Is the patient Alert and Oriented? Yes * How many steps to enter\exit or inside your home? * PCP NO PCP - POSSIBLY GRIFFIN? * Pharmacy [facility] * Preadmission Environment Home with Family * ADLs Independent * Equipment None * List name and contact numbers for known caregivers / representatives who currently or will assist patient after discharge: SAMAN TANG - MOTHER - [phone] * Verbal permission to speak to the caregivers and representatives has been obtained from the patient. Yes * Community resources currently utilized None * Additional services required to return to the preadmission environment? No * Can the patient safely return to the preadmission environment? Yes * Has this patient been hospitalized within the prior 30 days at any hospital? No Last DP export: 12/11/19 7:43 p Patient Name: QIANA DOUGHERTY Page 95024 at 2050 All edits/amendments must be made on the electronic document DICTATION DATE: 12/11/192048 ENGINEER INTERN: EAGLE 12/11/192048 RPT#: [id number] DC DATE: STATUS: ADM IN [facility] [address] [place] [address] END OF REPORT
[2019-12-12] VITALS (7 sets, daily range): BP systolic 133–159; BP diastolic 79–113
[2019-12-12 04:57] LABS: BASOPHILS 0.2 % (0-2); EOSINOPHILS 1.3 % (0-7); HEMATOCRIT 36.7 % (36.0-48.0); HEMOGLOBIN 10.9 g/dL (12-16); IMMATURE GRANULOCYTES 0.2 % (0-5); LYMPHOCYTES 28.6 % (15-50); MCH 23.8 pg (26.0-34.0); MCHC 29.7 g/dL (31.0-37.0); MCV 80.1 fL (80.0-100.0); MEAN PLATELET VOLUME 9.3 fL (7.4-10.4); MONOCYTES 5.4 % (2-11); NEUTROPHILS 64.3 % (40-80); PLATELET COUNT 252 10x3/uL (130-400); RBC 4.58 10x6/uL (4.00-5.40); RDW 16.8 % (11.5-14.5)
[2019-12-12 05:15] LABS: ALBUMIN 2.4 g/dL (3.4-5.0); ANION GAP 9.4 mmol/L (8-16); BILIRUBIN - TOTAL 0.28 mg/dL (0.2-1.3); CREATININE - SERUM 0.9 mg/dL (0.6-1.3); MAGNESIUM - SERUM 1.7 mg/dL (1.8-2.4); POTASSIUM - SERUM 3.4 mmol/L (3.5-5.1); PROTEIN - SERUM 5.9 g/dL (6.4-8.2)
--- NOTE | 2019-12-12 10:50 | NUR ---
PT AWAKE AND OREITED NO COMPLAINTS OR CONCERNS. CL INR EAH, SRX2, NO FAMILY AT BEDSIDE,.
--- NOTE | 2019-12-12 15:00 | NUR ---
I have reviewed this patient and I concur with the Shift Assessment completed by the Licensed Practical Nurse today this shift.
[2019-12-12] MEDS ORDERED: NORVASC10 MG PO (17:59)
[2019-12-12] MEDS ORDERED: FUROSEMIDE20 MG PO (17:59)
--- NOTE | 2019-12-12 19:30 | NUR ---
REPORT RECEIVED. PT HAS A D/C ORDER BUT REFUSES TO LEAVE UNTIL SHE TALKS TO CARDIOLOGY, NOTIFIED DENVER NEWMAN
[2019-12-13 04:59] VITALS: BP 154/103
[2019-12-13 05:10] LABS: BASOPHILS 0.4 % (0-2); EOSINOPHILS 3.5 % (0-7); HEMATOCRIT 39.3 % (36.0-48.0); HEMOGLOBIN 11.9 g/dL (12-16); IMMATURE GRANULOCYTES 0.3 % (0-5); LYMPHOCYTES 44.4 % (15-50); MCHC 30.3 g/dL (31.0-37.0); MCV 79.2 fL (80.0-100.0); MONOCYTES 7.3 % (2-11); NEUTROPHILS 44.1 % (40-80); PLATELET COUNT 184 10x3/uL (130-400); RBC 4.96 10x6/uL (4.00-5.40); RDW 16.6 % (11.5-14.5); WBC 7.8 10x3/uL (4.8-10.8)
[2019-12-13 05:45] LABS: ALBUMIN 2.6 g/dL (3.4-5.0); ALKALINE PHOSPHATASE 86 U/L (30-120); ALT (SGPT) 38 U/L (10-68); BILIRUBIN - TOTAL 0.25 mg/dL (0.2-1.3); CALC OSMOLALITY 277 mosm/kg (275-300); CALCIUM 8.6 mg/dL (8.5-10.1); CARBON DIOXIDE 26.6 mmol/L (21.0-32.0); CHLORIDE - SERUM 104 mmol/L (98-107); CREATININE - SERUM 0.8 mg/dL (0.6-1.3); GLUCOSE 90 mg/dL (74-106); MAGNESIUM - SERUM 2.1 mg/dL (1.8-2.4); POTASSIUM - SERUM 3.6 mmol/L (3.5-5.1); PROTEIN - SERUM 6.5 g/dL (6.4-8.2); SODIUM 139 mmol/L (136-145); UREA NITROGEN 13 mg/dL (7-18); eGFR NON AFRICAN AMERICAN 83 mL/min (90-120)
--- NOTE | 2019-12-13 07:40 | NUR ---
PT AWAKE ANDO RIENTED, WAITING TO SEE DR VALERIO PRIOR TO HER D/C/
[2019-12-13 09:50] VITALS: BP 142/104
[2019-12-13 12:02] VITALS: Ht 175.3 cm; Wt 70.3 kg
--- NOTE | 2019-12-13 12:49 | NUR ---
PATIENT HAS REFUSED TO TAKE HER BREATHING SINCE IT WAS ORDERED. PATIENT STATES SHE DOES NOT TAKE BREATHING TREATMENTS AT HOME AND DO NOT NEED THEM IN THE HOSPITAL AND SHE WILL NOT TAKE. CHANGED TREATMENTS TO PRN IN CASE SOMETHING HAPPENS AND SHE AGREES TO TAKE.
[2019-12-13 14:15] VITALS: BP 146/93
--- NOTE | 2019-12-13 17:20 | NUR ---
I have reviewed this patient and I concur with the Shift Assessment completed by the Licensed Practical Nurse today this shift.
[2019-12-13 18:34] VITALS: BP 149/100
--- NOTE | 2019-12-13 19:20 | NUR ---
REPORT RECEIVED. PT CARE ASSUMED. PT LAYING IN BED RR EVEN AND UNLABORED. NO S/SX OF DISTRESS OBSERVED AT THIS TIME. NO NEEDS EXPRESSED. CALLL LIGHT IN REACH. WILL CTM.
[2019-12-13 20:00] VITALS: BP 152/96
[2019-12-14] VITALS: BP 123/77
[2019-12-14 04:00] VITALS: BP 140/94
[2019-12-14 05:02] LABS: BASOPHILS 0.1 % (0-2); EOSINOPHILS 0.2 % (0-7); IMMATURE GRANULOCYTES 0.2 % (0-5); MCH 24.1 pg (26.0-34.0); MCV 77.9 fL (80.0-100.0); MONOCYTES 4.4 % (2-11); NEUTROPHILS 75.1 % (40-80); RBC 5.39 10x6/uL (4.00-5.40); RDW 16.1 % (11.5-14.5)
[2019-12-14 05:12] LABS: PLATELET COUNT 306 10x3/uL (130-400); WBC 12.4 10x3/uL (4.8-10.8)
[2019-12-14 05:13] LABS: ALKALINE PHOSPHATASE 100 U/L (30-120); ALT (SGPT) 37 U/L (10-68); BILIRUBIN - TOTAL 0.34 mg/dL (0.2-1.3); CALC OSMOLALITY 278 mosm/kg (275-300); CALCIUM 8.8 mg/dL (8.5-10.1); CARBON DIOXIDE 25.7 mmol/L (21.0-32.0); CHLORIDE - SERUM 103 mmol/L (98-107); CREATININE - SERUM 0.8 mg/dL (0.6-1.3); GLUCOSE 105 mg/dL (74-106); MAGNESIUM - SERUM 2.2 mg/dL (1.8-2.4); POTASSIUM - SERUM 3.7 mmol/L (3.5-5.1); PROTEIN - SERUM 7.4 g/dL (6.4-8.2); SODIUM 139 mmol/L (136-145); UREA NITROGEN 16 mg/dL (7-18); eGFR NON AFRICAN AMERICAN 83 mL/min (90-120)
--- NOTE | 2019-12-14 07:17 | NUR ---
PT AWAKE AND ORIENTED, LYIGN IN BED WAITING ON HEART CATH. NO COMPLAINTS OR CONCERNS STATED AT THIS TIME. CL IN REACH, SRX2.
--- NOTE | 2019-12-14 09:18 | MORECARE ---
CASE MANAGEMENT DISCHARGE SUMMARY PATIENT: QIANA DOUGHERTY UNIT: [id number] ADM DATE: 12/09/19 AGE: 44 : 79 SEX: F ROOM/BED: D.7373 AUTHOR: ALEX,DOC PHYSICIAN: REFERRING PHYSICIAN: TARUN SWEET MD DATE OF SERVICE: 12/14/19 Discharge Plan Patient Name: QIANA DOUGHERTY Facility: [facility]:[place] : 1975 Planned Disposition: Home Anticipated Discharge Date: Discharge Date: Expected LOS: Initial Reviewer: [email or web address] Initial Review Date: 12/09/2019 Generated: 12/14/19 10:17 am Comments DCP- Discharge Planning Updated by [email or web address]: Teetee Cowan on 12/11/19 7:[address] LATE ENTRY 12/10/19 Patient Name: QIANA DOUGHERTY Admission Status: ER Accout number: [id number] Admission Date: 12-09-2019 : 1975 Admission Diagnosis: Attending: KEE, Current LOS: 1 Anticipated DC Date: Planned Disposition: Primary Insurance: [place] [employer] [place] Discharge Planning Comments: CM met with patient to complete initial dc planning assessment. CM educated patient on the CM role and verbal consent given by patient to complete assessment. Patient lives at home with her friend where she is independent with her care. At discharge patient plans to return home and feels this is a safe discharge. CM discussed availability of home health, rehab services, and medical equipment. Patient requested information on drug rehab facilities. CM gave patient a list of rehab facilities locally. CM will continue to follow and will assist as needed with dc plans/needs. Sheet Heater: Teetee Cowan DCPIA - Discharge Planning Initial Assessment Updated by [email or web address]: Teetee Cowan on 12/11/19 8:41 pm * Is the patient Alert and Oriented? Yes * How many steps to enter\exit or inside your home? * PCP NO PCP - POSSIBLY [facility]? * Pharmacy [facility] * Preadmission Environment Home with Family * ADLs Independent * Equipment None * List name and contact numbers for known caregivers / representatives who currently or will assist patient after discharge: SAMAN TANG - MOTHER - [phone] * Verbal permission to speak to the caregivers and representatives has been obtained from the patient. Yes * Community resources currently utilized None * Additional services required to return to the preadmission environment? No * Can the patient safely return to the preadmission environment? Yes * Has this patient been hospitalized within the prior 30 days at any hospital? No Last DP export: 12/11/19 7:50 p Patient Name: QIANA DOUGHERTY Page [id number] at 0918 All edits/amendments must be made on the electronic document DICTATION DATE: 12/14/19916 CATH LAB RADIOLOGY TECHNICIAN: EAGLE 12/14/19916 RPT#: [id number] DC DATE: STATUS: ADM IN [facility] [address] [place] [address] END OF REPORT
[2019-12-14 09:54] VITALS: BP 143/86
--- NOTE | 2019-12-14 09:58 | NUR ---
PT AWAKE AND ORIETNED, WAITING FOR HEART CATH. PREOP DONE. CL IN REACH, SRX.2
--- NOTE | 2019-12-14 10:14 | NUR ---
PT GONE FOR HEART CATH.
[2019-12-14 13:00] VITALS: BP 125/76
--- NOTE | 2019-12-14 16:05 | NUR ---
UPON ADMIT, PATIENT HAS NOT HAD A FLU SHOT. WHEN QUESTIONED, SHE REFUSED ONE.
[2019-12-14 16:51] VITALS: BP 127/83
--- NOTE | 2019-12-14 17:26 | NUR ---
PT DC COMPLETED, IV OUT INTACT. PT STATES SHE IS WAITING ON HER RIDE TO PICK HER UP BUT THEY SHOULD BE HERE WITHIN AN HOUR OR SO. CL IN REACH, SRXW
--- NOTE | 2019-12-14 19:10 | NUR ---
PT AMBULATED OUT OF HER OWN ACCORD, DENIES WHEELCHAIR.
--- NOTE | 2019-12-15 07:55 | MORECARE ---
CASE MANAGEMENT DISCHARGE SUMMARY PATIENT: QIANA DOUGHERTY UNIT: [id number] ADM DATE: 12/09/19 AGE: 44 : 79 SEX: F ROOM/BED: D.5413 AUTHOR: ALEX,DOC PHYSICIAN: REFERRING PHYSICIAN: TARUN SWEET MD DATE OF SERVICE: 12/15/19 Discharge Plan Patient Name: QIANA DOUGHERTY Facility: [facility]:[place] : 1975 Planned Disposition: Home Anticipated Discharge Date: 12/14/19 Discharge Date: 12/14/2019 Expected LOS: 5 Initial Reviewer: [email or web address] Initial Review Date: 12/09/2019 Generated: 12/15/19 8:55 am Comments DCP- Discharge Planning Updated by [email or web address]: Teetee Cowan on 12/11/19 7:[address] LATE ENTRY 12/10/19 Patient Name: QIANA DOUGHERTY Admission Status: ER Accout number: [id number] Admission Date: 12-09-2019 : 1975 Admission Diagnosis: Attending: KEE, Current LOS: 1 Anticipated DC Date: Planned Disposition: Primary Insurance: [place] [employer] [place] Discharge Planning Comments: CM met with patient to complete initial dc planning assessment. CM educated patient on the CM role and verbal consent given by patient to complete assessment. Patient lives at home with her friend where she is independent with her care. At discharge patient plans to return home and feels this is a safe discharge. CM discussed availability of home health, rehab services, and medical equipment. Patient requested information on drug rehab facilities. CM gave patient a list of rehab facilities locally. CM will continue to follow and will assist as needed with dc plans/needs. Felt Hat Flanging Operator: Teetee Cowan DCPIA - Discharge Planning Initial Assessment Updated by [email or web address]: Teetee Cowan on 12/11/19 8:41 pm * Is the patient Alert and Oriented? Yes * How many steps to enter\exit or inside your home? * PCP NO PCP - POSSIBLY [facility]? * Pharmacy [facility] * Preadmission Environment Home with Family * ADLs Independent * Equipment None * List name and contact numbers for known caregivers / representatives who currently or will assist patient after discharge: SAMAN TANG - MOTHER - [phone] * Verbal permission to speak to the caregivers and representatives has been obtained from the patient. Yes * Community resources currently utilized None * Additional services required to return to the preadmission environment? No * Can the patient safely return to the preadmission environment? Yes * Has this patient been hospitalized within the prior 30 days at any hospital? No Last DP export: 12/14/19 8:18 a Patient Name: QIANA DOUGHERTY Page 13412 at 0755 All edits/amendments must be made on the electronic document DICTATION DATE: 12/15/19 0755 RAG WILLOW OPERATOR: EAGLE 12/15/19 0755 RPT#: [id number] DC DATE:12/14/19 STATUS: DIS IN [facility] [address] [place] [address] END OF REPORT
--- NOTE | 2019-12-15 11:25 | OP ---
PATIENT NAME: QIANA DOUGHERTY MEDICAL RECORD: [id number] :[birth year] LOCATION:D.M2 D.2113 ADMISSION DATE:12/09/19 SURGEON: ETHEL VALERIO MD DATE OF OPERATION: 12/14/2019 PROCEDURES: 1. Right heart catheterization. 2. Left heart catheterization. 3. Adenosine infusion. 4. Selective coronary angiography. 5. Left ventriculogram. INDICATION: Pulmonary hypertension, class IV, chest pain. PROCEDURE IN DETAIL: After informed consent was obtained and after detailed description of risks, benefits as well as alternative therapies, the patient elected to proceed with angiogram and heart catheterization. The right femoral area was prepped and draped in normal sterile fashion. Right femoral artery was cannulated via modified Seldinger technique with placement of 5-Mohawk sheath. The right femoral vein cannulated via modified Seldinger technique with placement of 5-Mohawk sheath. All catheters exchanged through this sheath. FINDINGS: Left ventriculogram was performed in standard 30-degree DORMAN view, reveals good cardiac wall motion throughout all segments. Overall ejection fraction estimated at 60%. SELECTIVE CORONARY ANGIOGRAPHY: 1. Left main, left anterior descending, left circumflex, and right coronary artery are all smooth-walled vessels with no angiographic evidence of coronary artery disease. 2. Hemodynamics: Right atrial mean pressure of 5, right ventricular pressure of 70/25. 3. Pulmonary artery pressure 70/25. 4. Pulmonary wedge pressure mean of 10. Adenosine was infused at 50, 100, and 200 mcg. There was no change in pulmonary systolic pressure. OVERALL IMPRESSION: Pulmonary hypertension, no response to adenosine. No coronary artery disease, normal LV function. Center medical management on pulmonary treatment of the pulmonary hypertension. TRANSINT:[id number] Voice Confirmation ID: [id number] DOCUMENT ID: [id number] ETHEL VALERIO MD at 1125 CC: [id number] DICTATION DATE: 12/14/19 1033 FAMILY PRACTICE MEDICAL DOCTOR: 12/14/19 1148 DIS IN 12/14/19 [place] [id number] [place] [id number]
--- NOTE | 2019-12-15 11:25 | CN ---
PATIENT NAME:QIANA STONE MEDICAL RECORD: [id number] : [birth year] LOCATION:D. D.2113 ADMIT DATE: 12/09/19 ACCOUNT: [id number] CONSULTING PHYSICIAN: ETHEL VALERIO MD REFERRING PHYSICIAN: TARUN SWEET MD DATE OF CONSULTATION: 12/13/2019 CARDIOLOGY CONSULTATION DIAGNOSES: 1. Shortness of breath. 2. Pulmonary hypertension. 3. Chest pain. 4. Systemic hypertension. 5. Smoking history. 6. Pericardial effusion. HISTORY OF PRESENT ILLNESS: Mrs. Stone presents with shortness of breath and chest pain. She was noted to have pulmonary hypertension, pulmonary systolic pressure is in the 70s. Pulmonary has been seeing her and want a right and left heart catheterization for further treatment of her chest pain and shortness of breath. She has no cardiac history. She was seen at [facility]. This was to be scheduled at [facility] however, now she is in the [place] area, it was never done at [facility]. PHYSICAL EXAMINATION: CONSTITUTIONAL/GENERAL APPEARANCE: Well nourished, well developed, appears stated age. EYES: Lids and conjunctivae noninjected. No discharge. No pallor. ENT: Lips within normal limit. No cyanosis. No pallor. NECK: Carotid arteries, bilateral normal upstroke. No bruits. No thrills. No jugular venous pressure or distention. CERVICAL LYMPH NODES: Nontender. Nonenlarged. THYROID: Not enlarged. No nodules. CARDIOVASCULAR: Precordial exam, nondisplaced. No heaves or pericardial thrills. Rate and rhythm, regular. Heart sounds, normal S1, normal S2. No S3, no gallop, no rub. Systolic murmur, not heard. Diastolic murmur, not heard. RESPIRATORY: Respiratory effort, unlabored. Normal curvature. No thoracic deformity. No chest wall tenderness. Percussion, resonant. Auscultation, clear. No wheezes, no rales, no rhonchi. ABDOMEN: Soft, nondistended, nontender. No abdominal pain, no vomiting and normal appetite. MUSCULOSKELETAL: No joint tenderness, normal gait, normal tone. SKIN: Warm and dry. OVERALL IMPRESSION: Ongoing pulmonary hypertension with chest pain, shortness of breath. We will do a right and left heart catheterization for evaluation with adenosine infusion to see if she responds to the adenosine. TRANSINT:[id number] Voice Confirmation ID: [id number] DOCUMENT ID: [id number] CONSULT REPORT [id number] QIANA STONE, ETHEL PARDO at 1125 CC: [id number] DICTATION DATE: 12/13/19 1201 DENTAL HYGIENE ADMINISTRATIVE ASSISTANT: 12/13/19 1619 DIS IN 12/14/19 [place] [id number] [place] [id number]
== END 2019-12-14 19:10 | disposition home or self-care (01) | DRG 286 ==
LOC: D.ER 10:15 → D.CVICU 14:01 → D.M2 14:01 → D.ICU 14:01 → D.M2 12-11 13:43
PROVIDERS: Emergency Medicine; Family Medicine; Internal Medicine Interventional Cardiology; ADMIT Family Medicine; ATTEND Family Medicine
PROC: 4A023N8 Measurement of Cardiac Sampling and Pressure, Bilateral, Percutaneous Approach (ICD-10-PCS; 2019-12-14)
PROC: 3E073KZ Introduction of Other Diagnostic Substance into Coronary Artery, Percutaneous Approach (ICD-10-PCS; 2019-12-14)
PROC: B2111ZZ Fluoroscopy of Multiple Coronary Arteries using Low Osmolar Contrast (ICD-10-PCS; principal; 2019-12-14 09:30)
PROC: B2151ZZ Fluoroscopy of Left Heart using Low Osmolar Contrast (ICD-10-PCS; 2019-12-14 09:30)
DX: I27.20 Pulmonary hypertension, unspecified (principal); I50.31 Acute diastolic (congestive) heart failure; I16.1 Hypertensive emergency; F17.213 Nicotine dependence, cigarettes, with withdrawal; I31.3 Pericardial effusion (noninflammatory); I11.0 Hypertensive heart disease with heart failure; F15.90 Other stimulant use, unspecified, uncomplicated; F12.90 Cannabis use, unspecified, uncomplicated; I08.1 Rheumatic disorders of both mitral and tricuspid valves

== ENCOUNTER 2021-02-14 11:55 | Emergency (ER) | payer BC ==
[~2021-02-14] VITALS: Ht 175.3 cm; Wt 88.2 kg
[~2021-02-14 11:55] MED LIST changes: +BACLOFEN20 M1 PO; +COZAAR25 MG PO; +FUROSEMIDE20 MG PO; +LAMICTAL ODT50 MG PO; +LAMICTAL XR25 MG; +LAMICTAL25 MG PO; +MACROBID100 MG PO; +TOPROL XL25 MG PO; +ZYPREXA20 MG PO
[2021-02-14 12:10] VITALS: Ht 175.3 cm; Wt 88.2 kg
[2021-02-14 13:01] LABS: BASOPHILS 0.5 % (0-2); EOSINOPHILS 3.9 % (0-7); HEMATOCRIT 41.5 % (36.0-48.0); IMMATURE GRANULOCYTES 0.1 % (0-5); LYMPHOCYTE ABS# 3.27 10x3/uL (1.18-3.74); MCH 29.9 pg (26.0-34.0); MCHC 33.7 g/dL (31.0-37.0); MCV 88.7 fL (80.0-100.0); MEAN PLATELET VOLUME 9.6 fL (7.4-10.4); MONOCYTES 6.4 % (2-11); NEUTROPHIL ABS# 3.49 10x3/uL (1.56-6.13); NEUTROPHILS 46.1 % (40-80); PLATELET COUNT 192 10x3/uL (130-400); RBC 4.68 10x6/uL (4.00-5.40); RDW 14.9 % (11.5-14.5); WBC 7.6 10x3/uL (4.8-10.8)
[2021-02-14 13:13] LABS: CALC OSMOLALITY 274 mosm/kg (275-300); CALCIUM 9.2 mg/dL (8.5-10.1); CARBON DIOXIDE 25.3 mmol/L (21.0-32.0); CHLORIDE - SERUM 105 mmol/L (98-107); CREATININE - SERUM 1.1 mg/dL (0.6-1.3); GLUCOSE 94 mg/dL (74-106); POTASSIUM - SERUM 3.3 mmol/L (3.5-5.1); SODIUM 138 mmol/L (136-145); UREA NITROGEN 10 mg/dL (7-18); eGFR NON AFRICAN AMERICAN 57 mL/min (90-120)
[2021-02-14 13:18] LABS: APTT 28.2 SECONDS (22.8-39.4); INR 1.05 (0.85-1.17); PROTIME 12.7 SECONDS (11.6-15.0)
[2021-02-14 13:31] LABS: ALBUMIN 3.5 g/dL (3.4-5.0); ALKALINE PHOSPHATASE 83 U/L (30-120); ALT (SGPT) 19 U/L (10-68); BILIRUBIN - TOTAL 0.38 mg/dL (0.2-1.3); CKMB 0.8 U/L (0.0-3.6); CREATINE KINASE 62 UL (21-215); MAGNESIUM - SERUM 1.9 mg/dL (1.8-2.4); PRO BNP 3610 pg/mL (0-125); PROTEIN - SERUM 7.2 g/dL (6.4-8.2); THYROID STIMULATING HORMONE 2.04 uIU/mL (0.36-3.74); TROPONIN-I < 0.017 ng/mL (0.000-0.060)
[2021-02-14] MEDS ORDERED: BUMEX2 MG PO (15:22)
[2021-02-14] MEDS ORDERED: K-DUR20 MEQ PO (15:22)
[2021-02-14 16:48] VITALS: BP 131/90
== END 2021-02-14 16:45 | disposition home or self-care (01) ==
LOC: D.ER 11:55
PROVIDERS: Emergency Medicine
DX: R60.0 Localized edema (principal); I50.9 Heart failure, unspecified; R06.02 Shortness of breath; I11.0 Hypertensive heart disease with heart failure; K21.9 Gastro-esophageal reflux disease without esophagitis